=== PATIENT | male | born 1980 | race African-American/Black ===

== ENCOUNTER 2021-02-17 11:09 | Emergency (ER) | payer OTHER ==
[~2021-02-17] VITALS: Ht 193 cm; Wt 81.7 kg
[2021-02-17 11:31] LABS: ABSOLUTE NEUTROPHILS 2.7 thou/uL (1.4-8.2); BASOPHILS 1.1 % (0.0-2.0); EOSINOPHILS 2.1 % (0.0-3.0); HEMATOCRIT 37.2 % (42.0-52.0); HEMOGLOBIN 12.8 gm/dL (14.0-18.0); LYMPHOCYTES 41.6 % (24.0-44.0); MCHC 34.5 g/dL (28.0-37.0); MCV 95.6 fL (80.0-100.0); MONOCYTES 8.2 % (1.0-8.0); PLATELET COUNT 282 thou/uL (150-400); RBC 3.89 mil/uL (4.50-6.00); RDW 13.5 % (10.5-14.5); WBC 5.8 thou/uL (4.0-11.0)
[2021-02-17 11:40] LABS: CALCIUM 8.4 mg/dL (8.5-10.1); CREATININE 1.4 mg/dL (0.7-1.3); POTASSIUM 3.5 mmol/L (3.5-5.1)
[2021-02-17 11:43] LABS: URINE BLOOD 2+ (Negative); URINE CLARITY CLEAR; URINE COLOR YELLOW; URINE GLUCOSE-RANDOM* NEGATIVE (Negative); URINE KETONES TRACE (Negative); URINE LEUKOCYTES-REFLEX NEGATIVE (Negative); URINE NITRITE-REFLEX NEGATIVE (Negative); URINE PROTEIN (DIPSTICK) TRACE (Negative); URINE SPECIFIC GRAVITY >= 1.030 (1.005-1.035)
[2021-02-17 11:45] LABS: ICTOTEST (BILI CONFIRMATORY) Negative (Negative); URINE BILIRUBIN NEGATIVE (Negative)
[2021-02-17 11:46] LABS: ALBUMIN 3.5 g/dL (3.4-5.0); SALICYLATE 5.6 mg/dL (2.8-20.0); TOTAL BILIRUBIN 0.5 mg/dL (0.2-1.0); TOTAL PROTEIN 7.3 g/dL (6.4-8.2)
[2021-02-17 11:53] LABS: BACTERIA-REFLEX 1-9 Few /HPF (None Seen); CASTS None Seen /LPF (None Seen); CRYSTALS None Seen /LPF (None Seen); SQUAMOUS None Seen /LPF (0-3); URINE RBC 1-2 Rare /HPF (NONE SEEN); URINE WBC-REFLEX 0-5 Rare /HPF (0-5)
[2021-02-17 12:00] LABS: AMP/METHAMP Negative (Negative); BARBITURATES Negative (Negative); BENZODIAZEPINES Negative (Negative); COCAINE Negative (Negative); METHADONE Negative (Negative); OPIATES Negative (Negative); PCP Negative (Negative)
--- NOTE | 2021-02-17 14:34 | EKG ---
[address] [place] [address] ELECTROCARDIOGRAM REPORT Name: VERONIQUE MCKEON Room #: REG Eric#: [id number] Admission: 02/17/21 Attend Phys: Discharge: Date of : 80 Report #: [id number] [facility] ED Test Date: 2021-02-17 Test Time: 12:04:33 Pat Name: VERONIQUE MCKEON Department: Room: Gender: M Surgical Device Sales Representative: : 1980 Requested By: Rajesh Hope Order Number: [id number] MD: Mario Antoine Measurements Intervals [place] Rate: 77 P: 71 MS: 185 QRS: 67 QRSD: 77 T: 60 QT: 357 QTc: 404 Interpretive Statements Sinus rhythm J Point elev, probable normal early repol pattern No previous ECG available for comparison Electronically Signed On 02-17-2021 14:34:09 CDT by Mario Antoine [email or web address] <ELECTRONICALLY SIGNED> By: Mario Antoine MD, [facility] 02/17/21 1434 1204 1204 Mario Antoine MD, FACC /EPI
[2021-02-18 19:20] VITALS: BP 123/71
== END 2021-02-18 19:20 ==
LOC: ER 11:09
PROVIDERS: Emergency Medicine
DX: F29 Unspecified psychosis not due to a substance or known physiological condition (principal); Z20.822 Contact with and (suspected) exposure to COVID-19